=== PATIENT | female | born 1970 | race Caucasian/White ===

== ENCOUNTER 2020-10-08 05:37 | Day surgery (SDC) | payer BC ==
[2020-10-07 14:59] VITALS: BMI 28.3
--- NOTE | 2020-10-07 22:14 | HP ---
HISTORY OF PRESENT ILLNESS: Ms. Adames is known to me from prior evaluation of cervical radiculopathy last fall, who returns now with a worsening lumbar spine pain and bilateral lower extremity L5 and S1 pains resulted in her visit in July. She states she has attempted epidural steroid injections, physical therapy for this problem in the past without relief. She had an MRI from the [facility] that revealed L4 and L5 disk protrusion, L5 is worse and acute as compared to L4. Both result in moderate to severe lateral recess narrowing at L5 disk, also causes left L5 neural foraminal narrowing. She hopes to discuss surgical intervention. PAST MEDICAL HISTORY: Significant for headaches and seasonal allergies. PAST SURGICAL HISTORY: Pituitary macroadenomectomy and radical skin cancer resection of the back. MEDICATIONS: Potassium chloride. ALLERGIES: TO MORPHINE AND CODEINE. ASSESSMENT: Lumbar radiculopathy. PLAN: Dr. Matias met with the patient, reviewed imaging, advocated for L4-L5 decompression and L5 diskectomy. He explained to the patient the risks, benefits, and alternatives to the procedure. The patient expressed understanding and elected to move forward with surgery as discussed. I do believe the patient is mentally competent and capable of making medical decisions for herself. We will move forward with surgery as planned. Job ID: [id number]
[2020-10-08] MEDS ORDERED: Bupivacaine PF 0.5% 30 ML VIAL ONE (06:11)
[2020-10-08] MEDS ORDERED: EPINEPHrine 1 MG/ML AMP ONE (06:11)
[2020-10-08] MEDS ORDERED: Thrombin 5000 UNITS/5 ML VIAL ONE (06:11)
[2020-10-08] MEDS ORDERED: Fentanyl 100 MCG/2 ML VIAL ONE ×2 (06:40→08:58)
[2020-10-08] MEDS ORDERED: Midazolam HCl 2 mg/2 ml Vial ONE (06:50)
[2020-10-08] MEDS ORDERED: SUGAMMADEX SODIUM 200 MG/2 ML VIAL ONE (08:25)
--- NOTE | 2020-10-08 08:36 | OP ---
DATE OF PROCEDURE: 10/08/2020 [employer] OPERATOR: Meir Hoffman PA-C INDICATION: Pain. DIAGNOSIS: Lumbar stenosis with lumbar radiculopathy. PROCEDURE PERFORMED: L4-L5 and L5-S1 decompression. ANESTHESIA: General. DESCRIPTION OF PROCEDURE: The patient was brought into the operating room and placed under general anesthesia. She was flipped from the supine to prone position on the operating room table. A linear incision was planned spanning the L4-S1 segments. After prepping and draping and after an appropriate preoperative pause, the incision was created. The soft tissues were swept away from midline. Self-retaining retractors were placed into the wound for optimal exposure. After confirming appropriate level with C-arm fluoroscopy, an Adson rongeur was used to remove the spinous process of L5 and the inferior half of L4. A high-speed cutting drill bit as well as 2, 3 and 4 mm Kerrisons were then used to perform a laminectomy which expand all of L5 and the inferior half of L4 and the superior aspect of L5 into the lateral recesses and all associated descending nerve roots were decompressed. I inspected the L5 disk, which was not incredibly protuberant and certainly was not producing any significant mass effect on the descending S1 nerve roots and therefore an L5 diskectomy was not performed. After completing the decompression, the wound was irrigated. Hemostasis was maintained throughout. The wound was then closed in anatomic layers, and a pressure dressing was applied. There were no known procedural complications. Job ID: [id number]
[2020-10-08] MEDS ORDERED: PROPOFOL 200 MG/20 ML VIAL ONE (09:08)
[2020-10-08] MEDS ORDERED: Ketorolac Tromethamine 30 MG/ML VIAL ONE (09:08)
[2020-10-08] MEDS ORDERED: Glycopyrrolate 0.2 MG/ML 5 ML SYRINGE ONE (09:08)
[2020-10-08] MEDS ORDERED: Rocuronium Bromide 10 MG/ML (10ML VIAL) ONE (09:08)
[2020-10-08] MEDS ORDERED: Dexamethasone 20 MG/5 ML VIAL ONE (09:08)
[2020-10-08] MEDS ORDERED: Ondansetron PF 4 MG/2 ML Vial ONE (09:08)
[2020-10-08] MEDS ORDERED: Lidocaine 1% PF 5 ML VIAL ONE (09:08)
[2020-10-08] MEDS ORDERED: Ondansetron ODT 4 MG TAB ONE (11:15)
[2020-10-08] MEDS ORDERED: Promethazine HCl 25 MG/ML VIAL ONE (11:36)
== END 2020-10-08 12:15 | disposition home or self-care (01) ==
LOC: SDC 05:37
PROVIDERS: ATTEND Neurological Surgery
PROC: 01NB0ZZ Release Lumbar Nerve, Open Approach (ICD-10-PCS; principal; 2020-10-08)
DX: M51.16 Intervertebral disc disorders with radiculopathy, lumbar region (principal); M48.061 Spinal stenosis, lumbar region without neurogenic claudication; J30.2 Other seasonal allergic rhinitis; Z88.5 Allergy status to narcotic agent
CPT/HCPCS: 76000; J0171; J0690; J1100; J1885; J2250; J2405; J2550; J2704; J3010; Q0162; S0020